=== PATIENT | male | born 1955 | race Caucasian/White ===

== ENCOUNTER 2018-11-25 10:45 | Emergency (ER) | payer OTHER ==
[~2018-11-25] VITALS: Ht 165.1 cm; Wt 70.0 kg
[2018-11-25 10:48] VITALS: Ht 165.1 cm; Wt 70.0 kg
--- NOTE | 2018-11-25 11:48 | ERD ---
ER Documentation Chief Complaint Chief Complaint SI, depressed also c/o left leg pain and numbness HPI This is a 63-year-old male that presented to the emergency department brought in by EMS as he states he is feeling depressed hopeless and suicidal. The patient states he has a plan but does not want to discuss it. The patient states he is never attempted suicide in the past. He denies illicit drug use. He denies a headache. He denies any chest pain. He denies any nausea or vomiting. Contrary to the triage note the patient denies any pain in his left leg or numbness. He denies a headache. He states he is currently homeless. ROS All systems reviewed and are negative except as per history of present illness. Physical Exam Vitals Vital Signs Date Temp Pulse Resp B/P (MAP) Pulse Ox O2 O2 Flow FiO2 Time Delivery Rate 11/25/18 98.0 99 18 129/74 98 10:48 (92) Physical Exam Constitutional:Well-developed. Disheveled HEENT:Normocephalic. Atraumatic.Pupils were equal round reactive to light. Moist mucous membranes.No tonsillar exudates. Respiratory: Not using accessory muscles of respiration.Lungs were clear to auscultation bilaterally. No rhonchi. No rales. No wheezing. Cardiovascular: Regular rate regular rhythm.No murmurs. No rubs were appreciated.S1, S2 normal. Distal pulses are palpable 2+ bilaterally. GI: Abdomen was soft. Nontender. Non Distended. No pulsatile abdominal masses or bruits. No rebound. No guarding. Bowel sounds were present and normal. Muscle skeletal: Full range of motion of both the upper and lower extremities bilaterally.Normal muscle tone.No assymetrical calf tenderness or swelling. Skin: No petechia, no purpura. No lesions on the palms or the soles of the feet. No maculopapular rash. NEURO: Patient was alert, awake, orientated x3.No facial droop. Gait observed and normal with no ataxia.Speech had regular rate and rhythm. No focal neurological deficits PSYCH: Patient had suicidal thoughts and ideations. No auditory tactile visual hallucinations Result Diagram: 11/25/18 1125 Results 24 hrs Laboratory Tests Test 11/25/18 11:25 White Blood Count 7.3 10^3/ul Red Blood Count 5.26 10^6/ul Hemoglobin 16.2 g/dl Hematocrit 49.2 % Mean Corpuscular Volume 93.5 fl Mean Corpuscular Hemoglobin 30.8 pg Mean Corpuscular Hemoglobin Concent 32.9 g/dl Red Cell Distribution Width 14.3 % Platelet Count 232 10^3/UL Mean Platelet Volume 10.8 fl Immature Granulocytes % 0.400 % Neutrophils % 62.3 % Lymphocytes % 25.8 % Monocytes % 10.1 % Eosinophils % 0.6 % Basophils % 0.8 % Nucleated Red Blood Cells % 0.0 /100WBC Immature Granulocytes # 0.030 10^3/ul Neutrophils # 4.5 10^3/ul Lymphocytes # 1.9 10^3/ul Monocytes # 0.7 10^3/ul Eosinophils # 0.0 10^3/ul Basophils # 0.1 10^3/ul Nucleated Red Blood Cells # 0.0 10^3/ul Procedures/MDM The patient presented to the emergency department with an active suicidal ideation. My differential diagnosis included but was not limited to major depressive disorder, normal despondency, bipolar disorder, schizophrenia, anxiety disorder, borderline personality disorder, antisocial personality di sorder, organic mental disorder, bereavement or alcohol or drug abuse. Ancillary lab work was obtained including blood alcohol level, drug screen and serum toxicology panel. The patient was provided a safe environment while in the emergency department with appropriate supervision. The patient will be seen and evaluated by the tele-psychiatrist. Departure Diagnosis: Primary Impression: Suicidal ideation Condition: Serious KHANG GARCIA MD Nov 25, 2018 11:48
--- NOTE | 2018-11-25 15:06 | PSY ---
Date/Time of Note Date/Time of Note DATE: 11/25/18 TIME: 18:04 Psychiatric Subjective Eval Consent Pt consented to telemedicine: Yes Subjective Evaluation Patient location: emergency Chief Complaint: SI, depressed also c/o left leg pain and numbness History of present illness HPI: 63 yo male with ho depression and etoh dependence. Pt tells that he w ants to kill himself, is very depressed, and has been using etoh. Denies psychosis. Past Psych Hx: + ho suicide attempts and admits PMHx: etoh dep nkda Meds; not taking MSE: cooperative, slightly disheveled, tremulous, decreased prosody of speech, depressed, restricted affect, organized, no delusions or avh +SI Imp: 63 yo male with si voluntary psych admit Alcohol withdrawal precautions with CIWA Daily thiamine 100mg po folate 1mg po mvi Medical history Problems Medical Problems: (1) Suicidal ideation Status: Acute Allergies: Coded Allergies: No Known Allergy (Unverified , 11/25/18) Psychiatric Objective Eval Mental Status Examination: Laboratory Results Laboratory Tests Test 11/25/18 11:25 11/25/18 11:40 White Blood Count 7.3 10^3/ul Red Blood Count 5.26 10^6/ul Hemoglobin 16.2 g/dl Hematocrit 49.2 % Mean Corpuscular Volume 93.5 fl Mean Corpuscular Hemoglobin 30.8 pg Mean Corpuscular Hemoglobin Concent 32.9 g/dl Red Cell Distribution Width 14.3 % Platelet Count 232 10^3/UL Mean Platelet Volume 10.8 fl Immature Granulocytes % 0.400 % Neutrophils % 62.3 % Lymphocytes % 25.8 % Monocytes % 10.1 % Eosinophils % 0.6 % Basophils % 0.8 % Nucleated Red Blood Cells % 0.0 /100WBC Immature Granulocytes # 0.030 10^3/ul Neutrophils # 4.5 10^3/ul Lymphocytes # 1.9 10^3/ul Monocytes # 0.7 10^3/ul Eosinophils # 0.0 10^3/ul Basophils # 0.1 10^3/ul Nucleated Red Blood Cells # 0.0 10^3/ul Prothrombin Time 11.1 Sec Prothrombin Time Ratio 0.9 INR International Normalized Ratio 0.79 Activated Partial Thromboplast Time 30.9 Sec Sodium Level 140 mmol/L Potassium Level 4.7 mmol/L Chloride Level 109 mmol/L Carbon Dioxide Level 26 mmol/L Anion Gap 5 Blood Urea Nitrogen 10 mg/dl Creatinine 0.72 mg/dl Est Glomerular Filtrat Rate mL/min > 60 mL/min Glucose Level 80 mg/dl Calcium Level 8.7 mg/dl Total Bilirubin 0.4 mg/dl Direct Bilirubin 0.00 mg/dl Indirect Bilirubin 0.4 mg/dl Aspartate Amino Transf (AST/SGOT) 31 IU/L Alanine Aminotransferase (ALT/SGPT) 24 IU/L Alkaline Phosphatase 125 IU/L Total Protein 6.5 g/dl Albumin 3.3 g/dl Globulin 3.20 g/dl Albumin/Globulin Ratio 1.03 Salicylates Level < 1.0 mg/dl Acetaminophen Level < 10.0 ug/ml Ethyl Alcohol Level 130.0 mg/dl Urine Color STRAW Urine Clarity CLEAR Urine pH 5.0 Urine Specific [place] 1.004 Urine Ketones NEGATIVE mg/dL Urine Nitrite NEGATIVE mg/dL Urine Bilirubin NEGATIVE mg/dL Urine Urobilinogen NEGATIVE mg/dL Urine Leukocyte Esterase NEGATIVE William/ul Urine Hemoglobin NEGATIVE mg/dL Urine Glucose NEGATIVE mg/dL Urine Total Protein NEGATIVE mg/dl Urine Opiates Screen Negative Urine Barbiturates Negative Urine Amphetamines Screen Negative Urine Benzodiazepines Screen Negative Urine Cocaine Screen Negative Urine Cannabinoids Negative Assessment and Plan Recommendation/Plan Multiple antipsychotics: No Discharge Disposition: Psychiatric inpatient Legal Status: Voluntary TAMICA JARAMILLO Nov 25, 2018 15:06
--- NOTE | 2018-11-25 15:37 | QN ---
Documentation Comment Patient was signed out to me by Dr. Brown. I spoke with the patient and he says that he does have a plan to run in front of traffic to kill himself. He is also requesting a dose of Ativan and a nicotine patch which I will order. COURTNEY TSAI MD Nov 25, 2018 15:37
[2018-11-25] MEDS ORDERED: NICOTINE (21 MG/24 HR) PATCH TRANSDERM ONE (16:00)
[2018-11-25] MEDS ORDERED: LORAZEPAM 1 MG TAB PO ONE (16:00)
[2018-11-25 19:06] VITALS: BP 133/95; PULSE 91; RESP 18
== END 2018-11-25 19:07 ==
LOC: E/R 10:45
DX: R45.851 Suicidal ideations (principal); R20.0 Anesthesia of skin
CPT/HCPCS: 80053; 80307; 81003; 85025; 85610; 85730